=== PATIENT | male | born 1980 | race African-American/Black ===

== ENCOUNTER 2018-08-11 06:22 | Day surgery (SDC) | payer OTHER ==
[2018-08-08 11:12] VITALS: BMI 30.8
[2018-08-11] MEDS ORDERED: EPINEPHrine 1:1,000 1 MG/1 ML - 30ML VIAL (INJECTION) ONE (07:09)
[2018-08-11] MEDS ORDERED: BACITRACIN 15 GM TUBE TOPICAL OINTMENT ONE (07:09)
[2018-08-11] MEDS ORDERED: SUCCINYLCHOLINE CHLORIDE 200 MG/10 ML VIAL ONE (07:10)
[2018-08-11] MEDS ORDERED: PROPOFOL 20 ML ONE ×3 (07:10→09:32)
[2018-08-11] MEDS ORDERED: MIDAZOLAM HCL 2 MG/2 ML SINGLE DOSE VIAL ONE ×2 (07:10→07:16)
[2018-08-11] MEDS ORDERED: DEXAMETHASONE SOD PHOSPHATE/PF 10 MG/ML SDV ONE (07:16)
[2018-08-11] MEDS ORDERED: ROPIVACAINE HCL 0.5% 30ML VIAL ONE (07:16)
[2018-08-11] MEDS ORDERED: LIDOCAINE HCL/PF 2% SDV 5ML VIAL ONE (07:28)
[2018-08-11] MEDS ORDERED: DEXAMETHASONE SOD PHOSPHATE 4 MG/1 ML VIAL ONE (07:28)
[2018-08-11] MEDS ORDERED: ONDANSETRON 4 MG/2 ML VIAL ONE (07:28)
[2018-08-11] MEDS ORDERED: ceFAZolin SODIUM 1 GM VIAL ONE (08:07)
[2018-08-11] MEDS ORDERED: LIDOCAINE 1%/EPI 1:100000 (20 ML MULTI DOSE VIAL) ONE (08:50)
[2018-08-11] MEDS ORDERED: LIDOCAINE 1%/EPI 1:100000 (50 ML MULTI DOSE VIAL) NR ONE (09:16)
--- NOTE | 2018-08-11 10:16 | OP ---
Operative Note - Note: Operative Date: 08/11/18 Pre-Operative Diagnosis: left shoulder rotator cuff tear. labral tear. osteoarthritis Operation: left shoulder arthroscopy, labral debridment, rotator cuff debridement, bony debridement, biceps tenodesis, subacromial decompression Implants: q-fix x1 Post-Operative Diagnosis: Same as Pre-op Surgeon: Asa Neal Data Analytics Developer: Galo Paredes Anesthesiologist/CONTINUUM OF CARE MANAGER: Niesha Barfield Anesthesia: Fractional Operative Report Dictated: Yes
--- NOTE | 2018-08-11 10:33 | OP ---
DATE OF OPERATION: 08/11/2018 PREOPERATIVE DIAGNOSES: Left shoulder osteoarthritis, rotator cuff tear, labral tear, biceps tenosynovitis. POSTOPERATIVE DIAGNOSES: Left shoulder osteoarthritis, rotator cuff tear, labral tear, biceps tenosynovitis. PROCEDURE: Left shoulder arthroscopy with debridement of the labrum, glenoid, humerus; debridement of the undersurface of the rotator cuff; biceps tenodesis; subacromial decompression. SURGEON: Asa Neal MD MAKEUP EDITOR: RAF Payne. ANESTHESIA: Regional. POSTOPERATIVE CONDITION: Stable. COMPLICATIONS: None. IMPLANTS: [employer] Q-FIX anchor x1. INDICATIONS: This is a pleasant gentleman who had been suffering from shoulder pain. He was treated with extensive physical therapy and failed to improve. MRI demonstrated some rotator cuff tendinopathy, labral pathology, as well as degenerative joint disease. Treatment options including nonoperative management versus operative management were reviewed. Operative risks were reviewed in detail including bleeding, infection, neurovascular injury, need for further surgery, postoperative pain and stiffness, progression of osteoarthritis. We reviewed the medical risks of surgery such as heart attack, stroke, DVT, PE, and . We reviewed patient course of surgery. I addressed all the patient's questions and concerns. He voiced understanding and elected to proceed. DESCRIPTION OF PROCEDURE: Patient was brought to the operating room after administration of a regional block in the preoperative holding area. He was placed into the beach chair position, careful to pad all bony prominences. The left upper extremity was then prepped and draped in usual sterile fashion. A preoperative dose of antibiotics was given, and the usual timeout procedure was performed. The shoulder was examined, demonstrating forward flexion to 160 degrees, external rotation to 50 degrees. There was good stability. The shoulder landmarks were then drawn out on the skin. The posterior port, viewing portal was now established. Examination of the glenohumeral joint demonstrated full-thickness cartilage wear in both the anterior portion of the glenoid and the humeral head and areas. Glenoid labrum was diffusely torn. The biceps tendon itself appeared unremarkable within the joint. Subscapularis was visualized and found to be normal. The arthroscope was now passed superiorly. The supraspinatus demonstrated some fraying on the undersurface. However, no arlene tear was noted. The infraspinatus appeared without fraying and without tearing. The arthroscope was now passed back in the center of the joint. The superior labrum was probed after establishing an anterior portal and found to be grossly unstable. Given this, it was decided to proceed with biceps tenodesis at this point. The biceps was tagged with a 2-0 Prolene suture. The biceps was then released, utilizing a straight biter. The base was debrided using a shaver. The glenoid labrum was diffusely debrided of any loose tissue. Osteophytes in the anterior aspect of the glenoid were debrided. Osteophytes in the inferior aspect of the humerus were debrided as well. The arthroscope was now withdrawn from the glenohumeral joint. It was passed into the subacromial space. Here, significant thickened bursal tissue. Subacromial bursectomy was performed. Visualization was now seen rotator cuff which was unremarkable. He did have a significant subacromial spur, and this was debrided down to a stable base using the shaver. At this point, the excess fluid was withdrawn from the subacromial space. The portals were sutured using 3-0 nylon. Incision was now planned out over the pectoralis major tendon. This was injected subcutaneously with lidocaine with epinephrine. Incision was then carried down through skin, to the subcutaneous tissue. Blunt spreading was used to expose the fascia over the pectoralis. Finger dissection was now carried down to the biceps tendon. The biceps tendon was now withdrawn out of the wound. The rasp was now used in the biceps groove to roughen the surface. A Q-FIX anchor was now drilled into the mid portion of the groove, and the anchor was inserted successfully. The 2 ends were then whipstitched into the biceps stump, and excess tendon was trimmed. The biceps were now tied down into the groove. The wound was now copiously irrigated. The skin was closed using interrupted horizontal mattress nylon 4-0 suture. Sterile dressings were placed. The patient was transferred to recovery room in stable condition. Ramses [id number]
[2018-08-11] MEDS ORDERED: oxyCODONE HCL 5 MG TABLET PO PRN (11:31)
[2018-08-11] MEDS ORDERED: ONDANSETRON 4 MG/2 ML VIAL IVPUSH PRN (11:31)
[2018-08-11] MEDS ORDERED: LACTATED RINGERS SOLUTION 1,000 ML IV SCH (11:45)
[2018-08-11 11:52] VITALS: BP 135/76; PULSE 79; TEMP 97.6
--- NOTE | 2018-08-15 18:41 | PATH ---
Surgical Pathology Report Patient Name: GINA RETANA Med. Rec. #: [id number] /Age/Gender: 1980 (Age: 38) / M Account: [id number] Location: [facility] Taken: 08/11/2018 Received: 08/11/2018 Reported: 08/15/2018 Physicians: Asa Neal M.D. Specimen(s) Received LEFT BICEP TENDON Clinical History Left shoulder rotator cuff tendinosis Final Diagnosis LEFT BICEPS TENDON, EXCISION: TENDON AND SYNOVIAL TISSUE WITH FOCAL FIBROSIS AND DEGENERATIVE CHANGE. Electronically Signed Cristopher Mejia M.D. Gross Description Received in formalin labeled "left biceps tendon," is a 4.5 x 0.7 x 0.3 cm lechuga portion of tendon. Blanket Binder sections are submitted in one cassette. 08/12/201808/12/2018
== END 2018-08-11 11:20 | disposition home or self-care (01) ==
LOC: FASU 06:22
PROVIDERS: ATTEND Orthopaedic Surgery Sports Medicine
PROC: 0RNK4ZZ Release Left Shoulder Joint, Percutaneous Endoscopic Approach (ICD-10-PCS; 2018-08-11)
PROC: 0RBK4ZZ Excision of Left Shoulder Joint, Percutaneous Endoscopic Approach (ICD-10-PCS; 2018-08-11)
PROC: 0LQ24ZZ Repair Left Shoulder Tendon, Percutaneous Endoscopic Approach (ICD-10-PCS; principal; 2018-08-11 08:26)
PROC: 0LS24ZZ Reposition Left Shoulder Tendon, Percutaneous Endoscopic Approach (ICD-10-PCS; 2018-08-11 08:26)
DX: M19.012 Primary osteoarthritis, left shoulder (principal); M75.102 Unspecified rotator cuff tear or rupture of left shoulder, not specified as traumatic; M65.812 Other synovitis and tenosynovitis, left shoulder; M24.112 Other articular cartilage disorders, left shoulder
CPT/HCPCS: 88304-TC; 94760

== ENCOUNTER 2018-08-20 10:35 | Emergency (ER) | payer OTHER ==
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
[2018-08-20 10:51] VITALS: TEMP 98.9; BMI 31.0
[2018-08-20] MEDS ORDERED: CLINDAMYCIN HCL 150 MG CAPSULE (FP) PO ONE (11:04)
[2018-08-20] MEDS ORDERED: IBUPROFEN 600 MG TABLET (FP) PO ONE ×2 (11:04→11:06)
[2018-08-20] MEDS ORDERED: CLINDAMYCIN HCL 150 MG CAPSULE (FP) ONE ×2 (11:07)
[2018-08-20 13:10] VITALS: BP 127/91; PULSE 98
--- NOTE | 2018-08-20 13:23 | CONSULT ---
Consult - text type - Consultation Consultation Note: Asked to eval this patient who had sutures removed yesterday and wound opened up. He is s/p shoulder arhtroscopy 10 days ago. PMH: reviewed in chart Meds: reviewed in chart All: NKDA ROS: no fevers/chills/weight loss PE: AOX3, NAD Ambulating well Left shoulder: Axillary wound dehisced. Serous drainage. No purulence. No abscess. NVID. Rest of shoulder exam intact, other wounds are well healed. Imp: Axillary wound dehiscence -under sterile prep, injected 5cc 1% lidocaine to numb wound edges -approximated with running 3.0 Nylon suture -bio occlusive dressing applied -will take Clindamycin for infection prophylaxix -f/u in 2 days. Will call if any fevers, incresed pain, pus.
== END 2018-08-20 13:13 | disposition home or self-care (01) ==
LOC: FER 10:35
DX: T81.30XA Disruption of wound, unspecified, initial encounter (principal)
CPT/HCPCS: 99283-25

== ENCOUNTER → 2018-09-01 | Day surgery (SDC) | payer OTHER | LOC: FASU 11:32 ==

== ENCOUNTER 2018-09-02 14:14 | Day surgery (SDC) | payer OTHER ==
[2018-09-02 11:07] VITALS: BMI 31.7
[~2018-09-02 14:14] MED LIST: DEXAMETHASONE SOD PHOSPHATE 4 MG/1 ML VIAL ONE; KETOROLAC TROMETHAMINE 30 MG/1 ML VIAL ONE; LACTATED RINGERS SOLUTION 1,000 ML IV SCH; MIDAZOLAM HCL 2 MG/2 ML SINGLE DOSE VIAL ONE; ONDANSETRON 4 MG/2 ML VIAL IVPUSH PRN; ONDANSETRON 4 MG/2 ML VIAL ONE; PROPOFOL 20 ML ONE; ceFAZolin SODIUM 1 GM VIAL ONE; oxyCODONE HCL 5 MG TABLET PO PRN
[2018-09-02] MEDS: CEFEPIME 2 GM in DEXTROSE 5%-WATER 100 ML IVPB SCH ×2 (14:45→18:30)
[2018-09-02] MEDS ORDERED: CEFEPIME HCL/D5W 2 GM/50 ML BAG IVPB SCH (14:45)
[2018-09-02] MEDS: VANCOMYCIN 1,250 MG in DEXTROSE 5%-WATER - 250 ML IVPB SCH (15:30)
[2018-09-02] MEDS ORDERED: CEFEPIME HCL 2 GM VIAL (RESTRICTED TO ID) ONE ×2 (15:50→19:10)
[2018-09-02] MEDS ORDERED: DEXTROSE 5%-WATER 100 ML IVPB ONE ×2 (15:50→19:10)
[2018-09-02 17:49] LABS: ALBUMIN 3.7 g/dl (3.5-5.0); ALK PHOS 57 U/L (32-92); ANION GAP 3 MMOL/L (8-16); BILIRUBIN,TOTAL 0.6 mg/dl (0.2-1.0); BLOOD UREA NITROGEN 9 mg/dl (7-18); CALCIUM 8.7 mg/dl (8.4-10.2); CHLORIDE 110 mmol/L (98-107); CO2 23 mmol/L (22-28); CREATININE 1.2 mg/dl (0.6-1.3); GLUCOSE,RANDOM 135 mg/dl (74-106); POTASSIUM 3.2 mmol/L (3.5-5.1); SGOT/AST 20 U/L (10-42); SGPT/ALT 13 U/L (10-40); SODIUM 136 mmol/L (136-145); TOT PROT 6.4 g/dl (6.4-8.3)
[2018-09-02 17:51] LABS: EOS % 2.5 % (0-4.5); HEMATOCRIT 38.4 % (35.4-49); HEMOGLOBIN 12.8 GM/dl (11.7-16.9); LYMPH % 17.4 % (8-40); MCH 31.3 pg (25.7-33.7); MCHC 33.3 g/dl (32.0-35.9); MEAN CELL VOLUME 94.1 fl (80-96); MEAN PLT VOLUME 8.4 fl (7.5-11.1); MONO % 3.5 % (3.8-10.2); NEUT % 76.6 % (42.8-82.8); PLATELET COUNT 264 K/MM3 (134-434); RBC 4.08 M/mm3 (4.00-5.60); RDW 11.4 % (11.9-15.9); WHITE BLOOD COUNT 10.2 K/mm3 (4.0-10.8)
[2018-09-02] MEDS ORDERED: CEFAZOLIN 1 GM/D5W 1 GRAM/50 ML BAG IVPB SCH ×2 (18:00)
[2018-09-02 19:58] LABS: ERYTHROCYTE SEDIMENTATION RATE 3 mm/hr (0-10)
[2018-09-02] MEDS: oxyCODONE HCL 5 MG TABLET PO PRN (20:00)
[2018-09-03] MEDS ORDERED: CEFEPIME HCL 2 GM VIAL (RESTRICTED TO ID) ONE (01:07)
[2018-09-03] MEDS ORDERED: DEXTROSE 5%-WATER 100 ML IVPB ONE (01:07)
[2018-09-03] MEDS: CEFEPIME 2 GM in DEXTROSE 5%-WATER 100 ML IVPB SCH ×2 (01:09→10:00)
[2018-09-03] MEDS ORDERED: PT OWN MED DRAWER 7, Y5N ONE (01:40)
[2018-09-03] MEDS ORDERED: REFRIGERATED ANITBIOTICS ONE ×2 (01:40→09:43)
[2018-09-03] MEDS: VANCOMYCIN 1,250 MG in DEXTROSE 5%-WATER - 250 ML IVPB SCH (03:41)
[2018-09-03] MEDS: oxyCODONE HCL 5 MG TABLET PO PRN (05:27)
[2018-09-03 06:20] VITALS: BP 110/73; PULSE 86; TEMP 97.9
--- NOTE | 2018-09-03 10:12 | PN ---
Progress Note (short form) - Note Progress Note: Pt comf. Vital Signs - 24 hr 09/02/18 09/02/18 09/02/18 10:59 11:12 12:55 Temperature 98.6 F 98.6 F Pulse Rate 94 H 86 Respiratory 16 18 Rate Blood Pressure 118/79 129/85 O2 Sat by Pulse 97 97 99 Oximetry (%) 09/02/18 09/02/18 09/02/18 13:00 13:05 13:10 Temperature Pulse Rate 82 80 75 Respiratory 18 18 18 Rate Blood Pressure 131/84 132/81 117/74 O2 Sat by Pulse 98 99 99 Oximetry (%) 09/02/18 09/02/18 09/02/18 13:25 13:40 13:55 Temperature Pulse Rate 82 82 86 Respiratory 20 20 20 Rate Blood Pressure 123/71 123/71 117/77 O2 Sat by Pulse 98 98 96 Oximetry (%) 09/02/18 09/02/18 09/03/18 15:06 22:19 06:19 Temperature 98.1 F 98.3 F 97.9 F Pulse Rate 88 90 86 Respiratory 18 18 18 Rate Blood Pressure 119/74 111/66 110/73 O2 Sat by Pulse 96 100 99 Oximetry (%) LUE dressing is CDI minimal swelling comfortable ROM shoulder thumbs up ok sign finger cross intact gram stain: gr- lac+ bacilli Laboratory Results - last 24 hr 09/02/18 09/02/18 15:30 15:30 WBC 10.2 RBC 4.08 Hgb 12.8 Hct 38.4 MCV 94.1 MCH 31.3 MCHC 33.3 RDW 11.4 L Plt Count 264 MPV 8.4 Absolute Neuts (auto) 7.7 Neutrophils % 76.6 Lymphocytes % 17.4 Monocytes % 3.5 L Eosinophils % 2.5 Basophils % 0.0 ESR 3 Sodium 136 Potassium 3.2 L Chloride 110 H Carbon Dioxide 23 Anion Gap 3 L BUN 9 Creatinine 1.2 Creat Clearance w eGFR > 60 Random Glucose 135 H Calcium 8.7 Total Bilirubin 0.6 AST 20 ALT 13 Alkaline Phosphatase 57 C-Reactive Protein < 0.3 Total Protein 6.4 Albumin 3.7 a/p: L shoulder wound breakdown/infection -pt wound copasetic this morning -will d/c home on po abx - clinda and levofloxacin - pt to f/u with 1 week to review cx results -avoid moving shoulder too much to allow wound to heal -follow up on Wednesday
--- NOTE | 2018-09-03 12:02 | OP ---
DATE OF OPERATION: 09/02/2018 PREOPERATIVE DIAGNOSIS: Left shoulder wound infection. POSTOPERATIVE DIAGNOSIS: Left shoulder wound infection. PROCEDURE: Left shoulder irrigation and debridement and re-closure of wound. SURGEON: Asa Neal MD ANESTHESIA: General and local. POSTOPERATIVE CONDITION: Stable. COMPLICATIONS: None. INDICATIONS: This is a pleasant, 38-year-old gentleman who previously underwent biceps tenodesis as well as shoulder arthroscopy. While his arthroscopy wounds healed well, the axillary wound dehisced. He was subsequently treated with antibiotics which failed to improve the condition. He was then indicated for washout, debridement, and re-closure. Prior to surgery, the risks, benefits and alternatives of the procedure were discussed, including bleeding, persistent infection, re-opening of the wound, neurovascular injury, need for further surgery, postoperative pain, and stiffness. We reviewed medical risks, such as heart attack, stroke, DVT, PE, and . I addressed the patient's questions and concerns. He voiced understanding and elected to proceed. PROCEDURE: The patient was brought to the operating room, where general anesthesia was administered. The left upper extremity was then prepped and draped in the usual sterile fashion. A preoperative dose of antibiotics was held, pending cultures. Usual timeout procedure was performed. A set of superficial cultures was first taken. The wound edges were now debrided sharply. Any nonviable tissue within the wound was debrided sharply. A curette was used to remove any surface debris. Palpation about the wound revealed no penetration deeper than the fascia over the pectoralis. No collection was identified. A deep set of cultures was taken and then a second set of cultures was repeated. The wound was now copiously pulse-lavaged with 3 L of normal saline. Given that the tissue appeared healthy and viable and no collection was identified, decision was made to close the wounds primarily. Utilizing only 4-0 nylon suture, using a combination of vertical and horizontal mattresses, the wound edges were able to be easily approximated without tension. The wound was now dressed. The patient was extubated and transferred to recovery room in stable condition. Ramses [id number] MTDD
== END 2018-09-03 11:01 | disposition home or self-care (01) ==
LOC: FASU 14:14 → FM/S 14:14 → FASU 09-03 11:01
PROVIDERS: ATTEND Orthopaedic Surgery Sports Medicine
PROC: 0HBCXZZ Excision of Left Upper Arm Skin, External Approach (ICD-10-PCS; principal; 2018-09-02 12:18)
DX: T81.49XA Infection following a procedure, other surgical site, initial encounter (principal); L08.9 Local infection of the skin and subcutaneous tissue, unspecified; Y83.8 Other surgical procedures as the cause of abnormal reaction of the patient, or of later complication, without mention of misadventure at the time of the procedure; Y92.9 Unspecified place or not applicable
CPT/HCPCS: 36415; 80053; 85025; 85651; 86140; 87040; 87070; 87075; 87186; 87205; 94760